=== PATIENT | male | born 1945 | race Hispanic/Latino ===

== ENCOUNTER 2022-03-30 06:24 | Day surgery (SDC) | payer OTHER, MEDICARE ==
[2022-03-28 12:32] LABS: BASOPHILS % (AUTO) 1.3 % (0.0-5.0); EOSINOPHILS % (AUTO) 3.6 % (0.0-8.0); HEMATOCRIT 39.4 % (42-54); LYMPHOCYTES % (AUTO) 23.1 % (21.0-51.0); MEAN CORPUSCULAR HEMOGLOBIN 28.7 pg (27.0-33.0); MEAN CORPUSCULAR HGB CONC 32.7 g/dL (32.0-36.0); MEAN CORPUSCULAR VOLUME 87.8 fL (79-99); MONOCYTES % (AUTO) 5.8 % (3.0-13.0); NEUTROPHILS % (AUTO) 65.8 % (40.0-77.0); PLATELET COUNT (AUTO) 226 K/uL (130-400); RED BLOOD CELL COUNT(AUTO) 4.49 MIL/uL (4.50-6.20); RED CELL DISTRIBUTION WIDTH 13.2 % (11.0-15.5); WHITE BLOOD COUNT (AUTO) 5.3 K/uL (4.8-10.8)
[2022-03-28 12:55] LABS: POTASSIUM 4.3 mmol/L (3.5-5.1)
[2022-03-29 09:59] VITALS: BP 111/55
[~2022-03-30] VITALS: Ht 165.1 cm; Wt 68.2 kg
[2022-03-30] VITALS (19 sets, daily range): BP systolic 110–126; BP diastolic 53–89
[~2022-03-30 06:24] MED LIST: ACET-2247 PO; ATOR10TA69 PO; CARB-283 OP; LISI5TAB21 PO; METF-446 PO; SITA100T12 PO; TAMS-1 PO
[2022-03-30] MEDS ORDERED: OPIUM/BELLADONNA ALKALOIDS 1 EACH SUPP.RECT RC ONE ×2 (06:52→09:16)
[2022-03-30] MEDS ORDERED: GENTAMICIN SULFATE 80 MG/2 ML VIAL ONE (07:10)
[2022-03-30] MEDS ORDERED: 0.9%NACL 1000ML 1,000 ML IV ONE (07:23)
[2022-03-30] MEDS ORDERED: CEFTRIAXONE 1G VIAL IVP ONE (08:00)
[2022-03-30] MEDS ORDERED: DEXAMETHASONE SOD PHOSPHATE 10MG/ML 1ML VIAL ONE (08:07)
[2022-03-30] MEDS ORDERED: LIDOCAINE PF 100MG/5ML (2%) SYRINGE 5ML ONE (08:07)
[2022-03-30] MEDS ORDERED: SUCCINYLCHOLINE 200MG/10ML SYR ONE (08:07)
[2022-03-30] MEDS ORDERED: GLYCOPYRROLATE 1 MG/5 ML SYRINGE ONE (08:08)
[2022-03-30] MEDS ORDERED: PROPOFOL 10 MG/ML 20ML VIAL IV ONE (08:08)
[2022-03-30] MEDS ORDERED: NEOSTIGMINE 5MG/5ML SYR IV ONE (08:08)
[2022-03-30] MEDS ORDERED: FENTANYL CITRATE PF 50 MCG/1 ML 2ML VIAL ONE ×2 (08:08→09:50)
[2022-03-30] MEDS ORDERED: ROCURONIUM 10MG/1ML SYR 10 MG/ML ML ONE (08:08)
[2022-03-30] MEDS ORDERED: GENTAMICIN SULFATE 80 MG/2 ML VIAL IV ONE (08:35)
[2022-03-30] MEDS ORDERED: ONDANSETRON 4MG INJ ONE (09:34)
[2022-03-30] MEDS ORDERED: PHENAZOPYRIDINE HCL 200 MG TABLET ONE (11:06)
== END 2022-03-30 12:10 | disposition home or self-care (01) ==
LOC: DAH 06:24
PROVIDERS: ATTEND Urology
DX: N40.1 Benign prostatic hyperplasia with lower urinary tract symptoms (principal); Z20.822 Contact with and (suspected) exposure to COVID-19; N13.8 Other obstructive and reflux uropathy; R39.14 Feeling of incomplete bladder emptying; R35.1 Nocturia; N32.89 Other specified disorders of bladder; I10 Essential (primary) hypertension; E03.9 Hypothyroidism, unspecified; I49.1 Atrial premature depolarization; E11.9 Type 2 diabetes mellitus without complications; Z79.84 Long term (current) use of oral hypoglycemic drugs; Z79.899 Other long term (current) drug therapy
CPT/HCPCS: 80048; 85025; 87426; 36415; 93005; 52648; 82948 ×2; J7030 ×2; A4354; A4340; J3010 ×2; J0330; J3490; J1100; J2710; J2001; J1580; J0696; J2704; J2405; A4358; A4215; A4223; A4222; A4221; A4663; A4510; A4600